=== PATIENT | male | born 1995 | race Two or more races ===

== ENCOUNTER 2018-04-19 22:46 | Emergency (ER) | payer OTHER ==
[2018-04-19 22:56] VITALS: BP 150/99
--- NOTE | 2018-04-19 23:13 | EDPHY ---
General Time Seen by Provider: 04/19/18 23:02 Narrative: CLINICAL IMPRESSION: Left 2nd finger laceration ASSESSMENT/PLAN: 23-year-old male presents to the emergency department with a superficial avulsion laceration to the lateral PIP joint of the left 2nd finger. Full range of motion, 2 point discrimination intact, distal neurovascular exam without abnormality. Tetanus up-to-date. Patient came to the ED because he was concerned about bleeding however the wound is not bleeding on my evaluation. He declined digital block. He tolerated cleaning efforts well. Wound dressing placed, wound care discussed, signs and symptoms of infection reviewed, warning signs return to ED sooner alignment discharge. DIFFERENTIAL DIAGNOSIS: includes but not limited to laceration of tendon or vascular structure, underlying fracture, laceration with retained FB CHIEF COMPLAINT: Laceration HPI: 23-year-old male presents to the emergency department with acute laceration to the left 2nd digit sustained on a pocket knife just prior to arrival. Patient states"I know I do not need sutures but it just would not stop bleeding". He reports tetanus is up-to-date. Wound has since stopped bleeding since arrival in the ED. No reported loss of sensation. He is right-hand dominant. PAST MEDICAL HISTORY: None reported, please see nurse records for any additional information Pertinent Past Surgical History: None reported Social History: Otherwise healthy, tetanus up-to-date REVIEW OF SYSTEMS: All other systems negative Constitutional: No fever, no chills Musculoskeletal: No deformity, no joint pain Skin: Laceration to left 2nd digit Neurological: No sensory loss or weakness, 2 point discrimination intact. PHYSICAL EXAM: General Appearance: Alert, oriented, appropriate for age, cooperative, NAD, well hydrated, non-toxic appearing, VSS, no hypoxia. Neurological: Alert and oriented x 3 Skin: Avulsion laceration to the lateral aspect of PIP joint of left 2nd digit. Distal 2 point discrimination and neurovascular exam is intact. Full range of motion. Musculoskeletal: Full range of motion MEDICAL DECISION MAKING: Patient was seen independently. Secondary supervising physician at time of evaluation was Dr. Peck . Diagnosis: Left 2nd digit laceration. New, requires workup Summary: See assessment and plan for summary of ED visit Patient Progress improved. - History Smoking Status: Never smoked - Objective Vital Signs: Initial Vital Signs Temperature (C) 36.7 C 04/19/18 22:54 Heart Rate 79 04/19/18 22:54 Respiratory Rate 16 04/19/18 22:54 Blood Pressure 150/99 H 04/19/18 22:54 O2 Sat (%) 96 04/19/18 22:54 O2 Delivery Mode Room Air Allergies/Adverse Reactions: No Known Allergies Allergy (Unverified 04/19/18 22:54) Home Medications: Medication Instructions Recorded NK [No Known Home Meds] 04/19/18 Departure - Departure Disposition: Home, Routine, Self-Care Clinical Impression: Finger laceration Qualifiers: Encounter type: initial encounter Finger: index finger Damage to nail status: without damage Foreign body presence: without foreign body Laterality: left Qualified Code(s): S61.211A - Laceration without foreign body of left index finger without damage to nail, initial encounter Condition: Good Instructions: Finger Laceration (ED) Additional Instructions: Keep your wound clean and dry. Cover with antibiotic ointment and Band-Aid. Monitor for signs of infection. Return to ED for redness, swelling, discharge, fevers or any other concerns. Referrals: NONE *PRIMARY CARE P,. [Primary Care Provider] - As per Instructions
== END 2018-04-19 23:28 | disposition home or self-care (01) ==
DX: S61.211A Laceration without foreign body of left index finger without damage to nail, initial encounter (principal); W26.0XXA Contact with knife, initial encounter; Y92.9 Unspecified place or not applicable; Y93.9 Activity, unspecified; Y99.9 Unspecified external cause status